=== PATIENT | male | born 1995 | race Caucasian/White ===

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

== ENCOUNTER 2017-10-12 17:59 | Emergency (ER) | payer OTHER ==
[~2017-10-12] VITALS: Ht 188 cm; Wt 165.0 kg
[2017-10-12 18:09] VITALS: BP 124/66; PULSE 96; RESP 20; TEMP 98.1; O2SAT 100
[2017-10-12] MEDS ORDERED: MORPHINE SULFATE 4 MG/ML INJ IM ONE (18:15)
[2017-10-12] MEDS ORDERED: ONDANSETRON ODT 4 MG TAB PO ONE (18:15)
[2017-10-12] MEDS ORDERED: ROSU10 PO (18:18)
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
[2017-10-12] MEDS ORDERED: PERC10TA27 PO (19:44)
[2017-10-12] MEDS ORDERED: ROBA750T PO (19:44)
[2017-10-12] MEDS ORDERED: DICL75TA PO (19:44)
[2017-10-12] MEDS ORDERED: ORPHENADRINE INJ 60 MG/2 ML AMP IM ONE (19:45)
[2017-10-12] MEDS ORDERED: HYDROmorphone HCL PF 1 MG/ML VIAL IM ONE (19:45)
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
[2017-10-12] MEDS ORDERED: MORPHINE SULFATE 8 MG/ML INJ IM ONE (20:30)
== END 2017-10-12 21:21 | disposition home or self-care (01) ==
LOC: NEPD 17:59
DX: S33.5XXA Sprain of ligaments of lumbar spine, initial encounter (principal); S00.83XA Contusion of other part of head, initial encounter; S70.311A Abrasion, right thigh, initial encounter; S01.551A Open bite of lip, initial encounter; E78.00 Pure hypercholesterolemia, unspecified; V23.4XXA Motorcycle driver injured in collision with car, pick-up truck or van in traffic accident, initial encounter; Y92.481 Parking lot as the place of occurrence of the external cause
CPT/HCPCS: 70450; 71045; 72125; 72128; 72131; 73552; 96372; 99284; J2270; J2360